=== PATIENT | female | born 2000 | race Caucasian/White ===

== ENCOUNTER 2021-08-24 08:15 | Emergency (ER) | payer OTHER ==
--- OUTSIDE RECORDS SUMMARY | 2021-08-24 08:20 | XMS REPORT | Continuity of Care Document ---
:2000 Author Organization [facility] t Address [address] [place] [address] Care Team Providers Name Role Phone Pcp, Does Not Have A Primary Care Physician AkinsiEsequiel Ferro Attending Clinician White_M Attending Clinician Unavailable White_M Admitting Clinician Unavailable Payers Payer Name Policy Type Policy Number Effective Date Expiration Date S ource Problems Condition Condition Condition Status Onset Resolution Last Treating Co mments Source Name Details Category Date Date Treatment Clinician Date Well woman Well woman Disease Active U nivers exam exam 3-11 ity of 00:00: [place] 00 Medical Branch Other Other Disease Active Overview: Univer s general general 2-22 Formattin ity o f counseling counseling 00:00: g of this [place] and advice and advice 00 note Me dical for for might be Branch contracept contracept different britta britta from the management management original. See records depo given last 03-13-21 Allergies, Adverse Reactions, Alerts Allergy Allergy Status Severity Reaction(s) Onset Inactive Treating Comm ents Source Name Type Date Date Clinician Haloperi Lisetensi Active Other - See U nivers dol ty to comments 3-11 ity of Lactate adverse 00:00: [place] reaction 00 Medical s Branch [place] Propensi Active Other - See Un favian ty to comments 3-11 ity of adverse 00:00: [place] reaction 00 Medical s Branch Benadryl Propensi Active Unknown - Uni vers Allergy ty to See comments 3-11 ity of Deconges adverse 00:00: [place] tant reaction Medical s [place] Social History Social Habit Start Date Stop Date Quantity Comments Source Exposure to Not sure University of SARS-CoV-2 [facility] (event) Branch Tobacco use and 2021-08-04 2021-08-04 Never used Universit y of exposure 00:00:00 00:00:00 [facility] Alcohol intake 2021-08-04 2021-08-04 Ex-drinker [facility] 00:00:00 00:00:00 (finding) [facility] Sex Assigned At [birth year] Universit y of 00:00:00 00:00:00 [facility] Smoking Status Start Date Stop Date Source Never smoker [facility] Medications Ordered Filled Start Stop Current Ordering Indication Dosage Frequency Signature Comments Components Source Medication Medication Date Date Medication? Clinician (SIG) Name Name No known No Univers medications 3-11 ity of 15:46: [place] 00 [facility] Branch Immunizations Ordered Filled Immunization Date Status Comments Sourc e Immunization Name Name Influenza Virus 2021-03-13 Completed Universit y of Vaccine 00:00:00 [facility] HPV 2017-12-24 Completed University of 00:00:00 [facility] HPV 2017-10-18 Completed University of 00:00:00 [facility] HPV 2016-08-17 Completed [facility] 00:00:00 [facility] Vital Signs Vital Name Observation Time Observation Value Comments Source Systolic blood 2021-08-04 21:35:00 115 mm[Hg] Univer sity of pressure [facility] Diastolic blood 2021-08-04 21:35:00 67 mm[Hg] Unive rsity of pressure [facility] Heart rate 2021-08-04 21:35:00 73 /min [facility] [place] [facility] Body temperature 2021-08-04 21:35:00 36.44 Dolores [facility] Respiratory rate 2021-08-04 21:35:00 16 /min [facility] Body height 2021-08-04 21:35:00 160 cm [facility] [place] [facility] ty of [facility] Body weight 2021-08-04 21:35:00 70.943 kg [facility] BMI 2021-08-04 21:35:00 27.71 kg/m2 [facility] Body mass index 2021-08-04 21:35:00 89.23 % Unive rsity of (BMI) [Percentile] [facility] ical Per age and sex Branch Procedures Procedure Date / Time Performed Performing Clinician Francis e POCT TEST 2021-08-04 21:38:00 Liya Bui Uni versity of [facility] Encounters Start End Encounter Admission Attending Care Care Encounter Source Date/Time Date/Time Type Type Clinicians Facility Department ID 2021-08-04 2021-08-04 Office VANESSA Bui [id number] [facility] [place] [facility] 15:00:00 15:30:00 Visit Liya 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 [id number] ity [facility] [id number] Joshua as MATERNAL [id number] Med ical & CHILD [address] [place] [address] 2020-10-03 2020-10-03 [place] [id number] [place] 01:03:00 01:03:00 [id number] 2020-09-29 2020-09-29 Outpatient White_M [facility] MMG [id number] [place] 04:21:00 04:21:00 [facility]506 [facility] Results Test Description Test Time Test Comments Results Result Comments Source POCT TEST 2021-08-04 21:38:00 Test Item Value Reference Range Interpretation Comme nts POCT PREG (test code = 1605) Negative On board controls acceptable with C Line (test code = 3574) Yes POCT PREG LOT # (test code = 3575) POCT PREG TEST DATE (test code = 3576) [facility]
[2021-08-24 08:43] LABS: Urine Blood Negative (Negative); Urine Glucose Negative (Negative); Urine Protein Trace (Negative)
[2021-08-24] MEDS ORDERED: ONDANSETRON 4 MG/2 ML VIAL ONE (08:53)
[2021-08-24] MEDS ORDERED: NA CHLORIDE 0.9% 1,000 ML ONE (08:53)
[2021-08-24 09:10] LABS: Absolute Lymphocytes (CBC) 1.3 K/uL (0.7-4.9); MPV 7.7 fL (7.6-11.3); RBC Red Blood Cell Count 4.41 M/uL (3.86-4.86)
[2021-08-24 09:45] LABS: ALT/SGPT 20 U/L (12-78); AST/SGOT 13 U/L (15-37); Albumin 4.1 g/dL (3.4-5.0); Alkaline Phosphatase 85 U/L (45-117); BUN Blood Urea Nitrogen 8 mg/dL (7-18); Bicarbonate 25 mmol/L (21-32); Bilirubin Total 0.4 mg/dL (0.2-1.0); Glucose Level 101 mg/dL (74-106); Lipase 106 U/L (73-393); Potassium 3.7 mmol/L (3.5-5.1); Protein, Total 7.4 g/dL (6.4-8.2); Sodium Level 145 mmol/L (136-145)
--- NOTE | 2021-08-24 09:52 | ER ---
Nurse's Notes [facility] Name: Fernando Castle Age: 20 yrs Sex: Female : 2000 Arrival Date: 08/24/2021 Time: 08:18 Bed 20 Private MD: Diagnosis: Cyclical vomiting, not intractable Presentation: 08/24 08:23 Chief complaint: Patient states: she feels faint starting this morning. Patient reports ap3 having CHS (cannabinoid hyperemeses syndrome), and has been having symptoms relating to reported illness the last few days. Patient also reports feeling dehydrated, has abdominal pain, and has been experiencing nausea and vomiting. Patient reports vomiting daily, but has increased in the last few days. 08:26 Coronavirus screen: At this time, the client does not indicate any symptoms associated ap3 with coronavirus-19. Ebola Screen: No symptoms or risks identified at this time. Initial Sepsis Screen: Does the patient meet any 2 criteria? No. Patient's initial sepsis screen is negative. Does the patient have a suspected source of infection? No. Patient's initial sepsis screen is negative. Risk Assessment: Do you want to hurt yourself or someone else? Patient reports no desire to harm self or others. Onset of symptoms was May 2021. 08:26 Method Of Arrival: Ambulatory ap3 08:26 Acuity: MARGARETTE 3 ap3 Triage Assessment: 08:28 General: Appears in no apparent distress. Behavior is calm, cooperative, appropriate ap3 for age. General: Reports feeling ill for fatigue for. Pain: Complains of pain in abdomen. Neuro: Level of Consciousness is awake, alert, obeys commands, Oriented to person, place, time, situation, Appropriate for age. Cardiovascular: Patient's skin is warm and dry. Respiratory: Airway is patent Respiratory effort is even, unlabored. GI: Reports lower abdominal pain, upper abdominal pain, nausea, vomiting. 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 Patient uses street drugs, marijuana, daily. - Family history:: not pertinent. - Hospitalizations: : No recent hospitalization is reported. Screenin:34 Abuse screen: Denies threats or abuse. Nutritional screening: Has had N/V for 3 or more ap3 days. Tuberculosis screening: No symptoms or risk factors identified. 09:04 Fall Risk None identified. gonzales Assessment: 08:35 General: patient provided with urine specimen container and education on proper urine ap3 collection. Patient verbalized understanding. . 09:04 Pain: Complains of pain in abdomen. GI: Reports nausea, vomiting. gonzales Vital Signs: 08:26 BP 131 / 77; Pulse 71; Pulse Ox 99% ; ap3 ED Course: 08:18 Patient arrived in ED. ds1 08:20 Maximino Strickland MD is Attending Physician. rn 08:28 Triage completed. ap3 08:35 Arm band placed on right wrist. ap3 08:35 Patient has correct armband on for positive identification. Placed in gown. Bed in low ap3 position. Call light in reach. Side rails up X 1. Adult w/ patient. 09:04 No provider procedures requiring assistance completed. Inserted saline lock: 20 gauge gonzales in left antecubital area, using aseptic technique. 09:06 CBC with Diff Sent. gonzales 09:06 CMP Sent. gonzales 09:06 Lipase Sent. gonzales 09:06 Urine --Ancillary (enter results) Sent. gonzales 10:12 IV discontinued, intact, Pressure dressing applied. gonzales Administered Medications: 09:05 Drug: Zofran (Ondansetron) 4 mg Route: IVP; Site: left antecubital; gonzales 09:06 Follow up: Response: No adverse reaction gonzales 09:05 Drug: NS 0.9% 1000 ml Route: IV; Rate: 1000 ml; Site: left antecubital; gonzales Outcome: 09:51 Discharge ordered by . rn 10:12 Discharged to home gonzales 10:12 Condition: good 10:12 Discharge instructions given to patient. 10:12 Patient left the ED. gonzales Signatures: Ramya French ds1 Maximino Strickland MD MD rn Prokisch, Amanda, RN RN ap3 Au-StagerMarcella RN RN gonzales Corrections: (The following items were deleted from the chart) 08:28 08:23 Chief complaint: Patient states: she feels faint starting this morning. Patient ap3 reports having CHS (cannabinoid hyperemeses syndrome), and has been having symptoms relating to reported illness the last few days. ap3
--- NOTE | 2021-08-24 09:52 | EDPHYS ---
Physician Documentation [facility] Name: Fernando Castle Age: 20 yrs Sex: Female : 2000 Arrival Date: 08/24/2021 Time: 08:18 Bed 20 Private MD: ED Physician Maximino Strickland HPI: 08/24 08:32 This 20 yrs old Female presents to ER via Ambulatory with complaints of rn nausea/vomiting, dehydration. 08:32 The patient presents to the emergency department with nausea, vomiting. Onset: The rn symptoms/episode began/occurred 3 month(s) ago. Possible causes: flare up of bowel problem, cannabinoid hyperemesis syndrome. The symptoms are aggravated by nothing. The symptoms are alleviated by nothing. Associated signs and symptoms: Pertinent positives: nausea, vomiting, Pertinent negatives: diarrhea, fever, GI bleeding. Severity of symptoms: At their worst the symptoms were moderate in the emergency department the symptoms are unchanged. The patient has experienced similar episodes in the past, chronically. The patient has not recently seen a physician. Pt reports diagnosed years ago with cannabinoid hyperemesis syndrome, quit smoking marijuana for a while, but restarted, states daily vomiting since May this year, no fever, feels identical to previous episodes. Has had CT, EGD, colonoscopy, and several outpatient tests that have been negative. Reports continues to smoke marijuana. . 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 Patient uses street drugs, marijuana, daily. - Family history:: not pertinent. - Hospitalizations: : No recent hospitalization is reported. ROS: 08:32 Constitutional: Negative for fever, chills, and weight loss, Eyes: Negative for injury, rn pain, redness, and discharge, Neck: Negative for injury, pain, and swelling, Cardiovascular: Negative for chest pain, palpitations, and edema, Respiratory: Negative for shortness of breath, cough, wheezing, and pleuritic chest pain, Abdomen/GI: + nausea/vomiting, + upper abd cramping Back: Negative for injury and pain, : Negative for injury, bleeding, discharge, and swelling, MS/Extremity: Negative for injury and deformity, Skin: Negative for injury, rash, and discoloration, Neuro: Negative for headache, numbness, tingling, and seizure. Exam: 08:32 Constitutional: This is a well developed, well nourished patient who is awake, alert, rn and in no acute distress. Speaking full sentences, joking, non-toxic appearance. Head/Face: Normocephalic, atraumatic. Eyes: Periorbital areas with no swelling, redness, or edema. ENT: Dry MM Cardiovascular: Regular rate and rhythm. No pulse deficits. Respiratory: No increased work of breathing, no retractions or nasal flaring. Abdomen/GI: soft, non-tender, no peritoneal signs Skin: Warm, dry MS/ Extremity: Pulses equal, no cyanosis. Neuro: Awake and alert, GCS 15 Vital Signs: 08:26 BP 131 / 77; Pulse 71; Pulse Ox 99% ; ap3 MDM: 08:20 Patient medically screened. rn 09:49 Differential diagnosis: Nonspecific abd pain, gastritis, viral gastroenteritis, rn gastroenteritis, cannabis hyperemesis syndrome. Data reviewed: vital signs, nurses notes, lab test result(s), and as a result, I will discharge patient. Counseling: I had a detailed discussion with the patient and/or guardian regarding: the historical points, exam findings, and any diagnostic results supporting the discharge/admit diagnosis, lab results, the need for outpatient follow up, to return to the emergency department if symptoms worsen or persist or if there are any questions or concerns that arise at home. Response to treatment: the patient's symptoms have markedly improved after treatment, and as a result, I will discharge patient. Special discussion: I discussed with the patient/guardian in detail that at this point there is no indication for admission to the hospital. It is understood, however, that if the symptoms persist or worsen the patient needs to return immediately for re-evaluation. ED course: No acute findings on blood work. . 08/24 08:31 Order name: CBC with Diff; Complete Time: 09:18 rn 08/24 08:31 Order name: CMP; Complete Time: 09:49 rn 08/24 08:31 Order name: Lipase; Complete Time: 09:49 rn 08/24 08:43 Order name: Urine Dipstick-Ancillary; Complete Time: 09:04 EDMS 08/24 08:44 Order name: Urine --Ancillary (enter results); Complete Time: 09:49 em1 08/24 08:31 Order name: IV Saline Lock rn 08/24 08:31 Order name: Labs collected and sent rn 08/24 08:31 Order name: Urine Dipstick-Ancillary (obtain specimen); Complete Time: 08:43 rn 08/24 08:31 Order name: Urine Test (obtain specimen); Complete Time: 08:43 rn Administered Medications: 09:05 Drug: Zofran (Ondansetron) 4 mg Route: IVP; Site: left antecubital; gonzales 09:06 Follow up: Response: No adverse reaction gonzales 09:05 Drug: NS 0.9% 1000 ml Route: IV; Rate: 1000 ml; Site: left antecubital; gonzales Disposition Summary: 08/24/21 09:51 Discharge Ordered Location: Home rn Problem: an acute exacerbation rn Symptoms: have improved rn Condition: Stable rn Diagnosis - Cyclical vomiting, not intractable rn Followup: rn - With: Private Physician - When: As needed - Reason: Recheck today's complaints, Re-evaluation by your physician Discharge Instructions: - Discharge Summary Sheet rn - Nausea and Vomiting, Adult rn - Cyclic Vomiting Syndrome, Adult rn Forms: - Medication Reconciliation Form rn - Thank You Letter rn - Antibiotic learning technologist - Prescription Opioid Use rn Signatures: Dispatcher [employer] [facility] Maximino Strickland MD MD rn Prokisch, Amanda RN RN ap3 Ying-Marcella Solomon RN RN gonzales
[2021-08-24 10:19] VITALS: BP 131/77; O2SAT 99
== END 2021-08-24 10:12 | disposition home or self-care (01) ==
LOC: ER 08:15
DX: R11.15 Cyclical vomiting syndrome unrelated to migraine (principal); F41.8 Other specified anxiety disorders; Z88.5 Allergy status to narcotic agent; Z88.8 Allergy status to other drugs, medicaments and biological substances; Z72.0 Tobacco use
CPT/HCPCS: 85025; 36415; 81025; 81003; 83690; 80053; 96374; 99283; J7030; J2405

== ENCOUNTER 2021-09-19 06:31 | Emergency (ER) | payer OTHER ==
--- OUTSIDE RECORDS SUMMARY | 2021-09-19 06:33 | XMS REPORT | Continuity of Care Document ---
:2000 Author Organization [facility] t Address [address] [place] [address] Care Team Providers Name Role Phone Pcp, [...] Source Name Type Date Date Clinician Haloperi Propensi Active Other - See U nivers dol ty to comments 3-11 ity of Lactate adverse 00:00: [place] reaction 00 Medical s Branch [place] Propensi Active Other - See Un favian ty to comments 3-11 ity of adverse 00:00: [place] reaction 00 Medical s Branch Benadryl Propensi Active Unknown - Uni vers Allergy ty to See comments 3-11 ity of Deconges adverse 00:00: [place] tant reaction Medical s [place] Social History Social Habit Start Date Stop Date Quantity Comments Source Exposure to Not sure University of SARS-CoV-2 [facility] (event) Branch Tobacco use and 2021-08-04 2021-08-04 Never used Universit y of exposure 00:00:00 00:00:00 [facility] Alcohol intake 2021-08-04 2021-08-04 Ex-drinker [facility] 00:00:00 00:00:00 (finding) [facility] Sex Assigned At [birth year] Universit y of 00:00:00 00:00:00 [facility] Smoking Status Start Date Stop Date Source Never smoker [facility] Medications Ordered Filled Start Stop Current Ordering Indication Dosage Frequency Signature Comments Components Source Medication Medication Date Date Medication? Clinician (SIG) Name Name No known No Univers medications 3-11 ity of 15:46: [address] Immunizations Ordered Filled Immunization Date Status Comments Sour e Immunization Name Name Influenza Virus 2021-03[facility]13 [facility] HPV 2017-12-24 Completed University 00:00:00 [facility] HPV 2017-10-18 Completed University of 00:00:00 [facility] HPV 2016-08-17 Completed [facility] 00:00:00 [facility] Vital Signs Vital Name Observation Time Observation Value Comments Source Systolic blood 2021-08-04 21:35:00 115 mm[Hg] Univer sity of pressure [facility] Diastolic blood 2021-08-04 21:35:00 67 mm[Hg] Unive rsity of pressure [facility] Heart rate 2021-08-04 21:35:00 73 /min [facility] Body temperature 2021-08-04 21:35:00 36.44 Dolores [facility] Res[facility] rate 2021-08-04 21:35:00 16 /min [facility] Body height 2021-08-04 21:35:[address] [facility] Body weight 2021-08-04 21:35:[address] [facility] BMI 2021-08-04 21:35:00 27.71 kg/m2 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
[2021-09-19] MEDS ORDERED: NA CHLORIDE 0.9% 1,000 ML ONE ×2 (06:59→08:37)
[2021-09-19] MEDS ORDERED: ONDANSETRON 4 MG/2 ML VIAL ONE (06:59)
[2021-09-19] MEDS ORDERED: FAMOTIDINE 20 MG/2 ML VIAL IV ONE (06:59)
[2021-09-19 07:16] LABS: Hematocrit 41.6 % (36.0-45.0); Lymphocytes % 10.7 % (15.3-44.8); MPV 7.8 fL (7.6-11.3); RBC Red Blood Cell Count 4.95 M/uL (3.86-4.86)
[2021-09-19 07:23] LABS: Urine Blood 1+ (Negative); Urine Glucose Negative (Negative); Urine Protein Trace (Negative); Urine pH 8.5 (5.0-7.0)
[2021-09-19 07:32] LABS: ALT/SGPT 21 U/L (12-78); AST/SGOT 12 U/L (15-37); Albumin 4.2 g/dL (3.4-5.0); Alkaline Phosphatase 87 U/L (45-117); BUN Blood Urea Nitrogen 6 mg/dL (7-18); Bicarbonate 20 mmol/L (21-32); Bilirubin Total 0.7 mg/dL (0.2-1.0); Glucose Level 124 mg/dL (74-106); Lipase 105 U/L (73-393); Potassium 3.4 mmol/L (3.5-5.1); Protein, Total 8.1 g/dL (6.4-8.2); Sodium Level 140 mmol/L (136-145)
[2021-09-19] MEDS ORDERED: PROMETHAZINE INJ 25 MG/ML AMP ONE (08:36)
[2021-09-19] MEDS ORDERED: KCL 20 MEQ/100 mL IVPB 100 ML IV ONE (08:37)
--- NOTE | 2021-09-19 09:31 | EDPHYS ---
Physician Documentation [facility] Name: Fernando Rossa Age: 20 yrs Sex: Female : 2000 Arrival Date: 09/19/2021 Time: 06:39 Bed 17 Private MD: ED Physician Maximino Strickland HPI: 09/19 07:09 This 20 yrs old Female presents to ER via EMS with complaints of vomiting. serge 07:09 The patient presents with abdominal pain in the lower abdomen. Onset: The serge symptoms/episode began/occurred 1 day(s) ago. The symptoms do not radiate. Associated signs and symptoms: none. Pertinent positives: vomiting. The symptoms are described as crampy. Modifying factors: The symptoms are alleviated by nothing, the symptoms are aggravated by food. Severity of pain: At its worst the pain was mild in the emergency department the pain is unchanged. The patient has experienced similar episodes in the past, multiple times. 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 - Social history:: Smoking status: Patient/guardian denies using tobacco, Patient uses street drugs, marijuana. - Family history:: not pertinent. ROS: 07:09 Constitutional: Negative for fever, chills, and weight loss, Eyes: Negative for injury, serge pain, redness, and discharge, ENT: Negative for injury, pain, and discharge, Neck: Negative for injury, pain, and swelling, Cardiovascular: Negative for chest pain, palpitations, and edema, Respiratory: Negative for shortness of breath, cough, wheezing, and pleuritic chest pain, Back: Negative for injury and pain, : Negative for injury, bleeding, discharge, and swelling, MS/Extremity: Negative for injury and deformity, Skin: Negative for injury, rash, and discoloration, Neuro: Negative for headache, weakness, numbness, tingling, and seizure, Psych: Negative for depression, anxiety, suicide ideation, homicidal ideation, and hallucinations, Allergy/Immunology: Negative for hives, rash, and allergies, Endocrine: Negative for neck swelling, polydipsia, polyuria, polyphagia, and marked weight changes, Hematologic/Lymphatic: Negative for swollen nodes, abnormal bleeding, and unusual bruising. 07:09 Abdomen/GI: Positive for abdominal pain, nausea and vomiting. Exam: 07:09 Constitutional: This is a well developed, well nourished patient who is awake, alert, serge and in no acute distress. Head/Face: Normocephalic, atraumatic. Eyes: Pupils equal round and reactive to light, extra-ocular motions intact. Lids and lashes normal. Conjunctiva and sclera are non-icteric and not injected. Cornea within normal limits. Periorbital areas with no swelling, redness, or edema. ENT: Nares patent. No nasal discharge, no septal abnormalities noted. Tympanic membranes are normal and external auditory canals are clear. Oropharynx with no redness, swelling, or masses, exudates, or evidence of obstruction, uvula midline. Mucous membranes moist. Neck: Trachea midline, no thyromegaly or masses palpated, and no cervical lymphadenopathy. Supple, full range of motion without nuchal rigidity, or vertebral point tenderness. No Meningismus. Chest/axilla: Normal chest wall appearance and motion. Nontender with no deformity. No lesions are appreciated. Cardiovascular: Regular rate and rhythm with a normal S1 and S2. No gallops, murmurs, or rubs. Normal PMI, no JVD. No pulse deficits. Respiratory: Lungs have equal breath sounds bilaterally, clear to auscultation and percussion. No rales, rhonchi or wheezes noted. No increased work of breathing, no retractions or nasal flaring. Abdomen/GI: Soft, non-tender, with normal bowel sounds. No distension or tympany. No guarding or rebound. No evidence of tenderness throughout. Back: No spinal tenderness. No costovertebral tenderness. Full range of motion. Female : Normal external genitalia. Skin: Warm, dry with normal turgor. Normal color with no rashes, no lesions, and no evidence of cellulitis. MS/ Extremity: Pulses equal, no cyanosis. Neurovascular intact. Full, normal range of motion. Neuro: Awake and alert, GCS 15, oriented to person, place, time, and situation. Cranial nerves II-XII grossly intact. Motor strength 5/5 in all extremities. Sensory grossly intact. Cerebellar exam normal. Normal gait. Psych: Awake, alert, with orientation to person, place and time. Behavior, mood, and affect are within normal limits. Vital Signs: 06:40 BP 125 / 90; Pulse 73; Resp 18; Temp 98.2(O); Pulse Ox 98% on R/A; Weight 65.77 kg; 5 Height 5 ft. 3 in. (160.02 cm); Pain 8/10; 08:38 BP 118 / 74; Pulse 74; Resp 19; ww 09:34 BP 102 / 57; Pulse 79; Resp 18; Pulse Ox 100% on R/A; ww 06:40 Body Mass Index 25.69 (65.77 kg, 160.02 cm) [facility] MDM: 06:39 Patient medically screened. serge 07:14 Differential diagnosis: appendicitis, bowel obstruction, Cholelithiasis, gastritis, serge Hepatitis, Menorrhagia, Mesenteric ischemia or infarction, non-specific abd pain, Peptic Ulcer Disease, Peritonitis, Pyelonephritis, Ureterolithiasis, urinary tract infection. Data reviewed: vital signs, nurses notes, EMS record, lab test result(s), CBC, electrolytes. 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 Test interpretation: by ED physician or midlevel provider:. Counseling: I had a detailed discussion with the patient and/or guardian regarding: the historical points, exam findings, and any diagnostic results supporting the discharge/admit diagnosis, lab results, radiology results, the need for outpatient follow up, for definitive care, a family practitioner, a rough patcher. 09:30 Response to treatment: the patient's symptoms have markedly improved after treatment, rn and as a result, I will discharge patient. Special discussion: I discussed with the patient/guardian in detail that at this point there is no indication for admission to the hospital. It is understood, however, that if the symptoms persist or worsen the patient needs to return immediately for re-evaluation. 09/19 06:40 Order name: CBC with Diff; Complete Time: 07:24 serge 09/19 06:40 Order name: CMP; Complete Time: 07:34 serge 09/19 06:40 Order name: Lipase; Complete Time: 07:34 serge 09/19 07:24 Order name: Urine Dipstick-Ancillary; Complete Time: 07:24 EDMS 09/19 08:18 Order name: Urine --Ancillary (enter results); Complete Time: 08:52 bd 09/19 06:40 Order name: IV Saline Lock; Complete Time: 07:15 serge 09/19 06:40 Order name: Labs collected and sent; Complete Time: 07:15 serge 09/19 06:40 Order name: Urine Dipstick-Ancillary (obtain specimen); Complete Time: 07:28 [facility] 09/19 06:40 Order name: Urine Test (obtain specimen); Complete Time: 07:28 [facility] Administered Medications: 07:00 Drug: NS 0.9% 1000 ml Route: IV; Rate: 1 bolus; Site: right antecubital; lp1 07:00 Drug: Pepcid (famotidine) 20 mg Route: IVP; Site: right antecubital; lp1 07:00 Drug: Zofran (Ondansetron) 4 mg Route: IVP; Site: right antecubital; lp1 08:11 Not Given (Duplicate Order): Lactated Ringers Solution 1000 ml IV at 150 ml/hr rn continuous 08:43 Drug: NS 0.9% 1000 ml Route: IV; Rate: 1 bolus; Site: right antecubital; ww 08:43 Drug: Phenergan (promethazine) 12.5 mg Route: IVP; Site: right antecubital; ww 08:43 Drug: Potassium Chloride 10 mEq Route: IV; Rate: calculated rate; Site: right ww antecubital; Disposition Summary: 09/19/21 09:30 Discharge Ordered Location: Home rn Problem: new rn Symptoms: have improved rn Condition: Stable rn Diagnosis - Cyclical vomiting, not intractable rn - Nausea with vomiting, unspecified rn - Abdominal pain, Generalized rn - Hypokalemia rn Followup: serge - With: Private Physician - When: 2 - 3 days - Reason: Recheck today's complaints, Continuance of care, Re-evaluation by your physician Followup: serge - With: - When: 2 - 3 days - Reason: Recheck today's complaints, Re-evaluation by your physician Discharge Instructions: - Discharge Summary Sheet serge - Abdominal Pain, Adult serge - Nausea and Vomiting, Adult serge - Nausea, Adult serge - Abdominal Pain, Adult, [id number] serge - Potassium Content of Foods serge - Nausea, Adult, [id number] serge - Hypokalemia serge Forms: - Medication Reconciliation Form rn - Thank You Letter rn - Antibiotic internal specialist - Prescription Opioid Use rn Prescriptions: - Pepcid 20 mg Oral Tablet - take 1 tablet by ORAL route every 12 hours for 15 days; 30 tablet; Refills: 0, [facility] Product Selection Permitted - Zofran 4 mg Oral Tablet - take 1 tablet by ORAL route every 12 hours As needed; 30 tablet; Refills: 0, [facility] Product Selection Permitted - promethazine 25 mg Oral Tablet - take 1 tablet by ORAL route every 6 hours As needed; 20 tablet; Refills: 0, [facility] Product Selection Permitted Signatures: Dispatcher [employer] Brandon Cobos MD MD cha Nieto, Roman, MD MD rn Pena, Laura, RN RN lp1 Kerry Naik RN RN 5 Christel Marcus RN RN ww
--- NOTE | 2021-09-19 09:31 | ER ---
Nurse's Notes [facility] Name: Fernando Rosas Age: 20 yrs Sex: Female : 2000 Arrival Date: 09/19/2021 Time: 06:39 Bed 17 Private MD: Diagnosis: Cyclical vomiting, not intractable;Nausea with vomiting, unspecified;Abdominal pain, Generalized;Hypokalemia Presentation: 09/19 06:40 Chief complaint: EMS states: pt smokes marijuana and ends up vomiting from it. pt last sm5 smoked about a day ago and has been vomiting since 2am. complaining of all over abd pain. Coronavirus screen: At this time, the client does not indicate any symptoms associated with coronavirus-19. Ebola Screen: No symptoms or risks identified at this time. Initial Sepsis Screen: Does the patient meet any 2 criteria? No. Patient's initial sepsis screen is negative. Does the patient have a suspected source of infection? No. Patient's initial sepsis screen is negative. Risk Assessment: Do you want to hurt yourself or someone else? Patient reports no desire to harm self or others. Onset of symptoms was September 19, 2021. 06:40 Method Of Arrival: EMS 5 06:40 Acuity: MARGARETTE 3 sm5 Triage Assessment: 06:42 General: Appears in no apparent distress. Behavior is cooperative, appropriate for age. sm5 Pain: Complains of pain in abdomen. Neuro: No deficits noted. Level of Consciousness is awake, alert, obeys commands, Oriented to person, place, time, situation. Cardiovascular: No deficits noted. Capillary refill < 3 seconds Patient's skin is warm and dry. Respiratory: No deficits noted. Airway is patent Trachea midline Respiratory effort is even, unlabored. GI: Abdomen is non-distended, Reports lower abdominal pain, upper abdominal pain, bloating, vomiting. 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 - Social history:: Smoking status: Patient/guardian denies using tobacco, Patient uses street drugs, marijuana. - Family history:: not pertinent. Screenin:43 Abuse screen: Denies threats or abuse. Denies injuries from another. Nutritional 5 screening: No deficits noted. Tuberculosis screening: No symptoms or risk factors identified. Fall Risk None identified. Assessment: 07:20 General: Appears in no apparent distress. Behavior is calm, cooperative. Pain: ww Complains of pain in abdomen. Neuro: Level of Consciousness is awake, alert, obeys commands, Oriented to person, place, time, situation, Moves all extremities. Gait is steady, Speech is normal. Cardiovascular: Patient's skin is warm and dry. Chest pain is denied. Respiratory: Airway is patent Respiratory effort is even, unlabored, Respiratory pattern is regular, symmetrical. GI: Abdomen is non-distended, Abd is soft Abdomen is tender to palpation in right lower quadrant and left lower quadrant Reports. Derm: No signs and/or symptoms reported regarding the dermatologic system. Skin is intact, is healthy with good turgor, Skin is pink, warm \T\ dry. Vital Signs: 06:40 BP 125 / 90; Pulse 73; Resp 18; Temp 98.2(O); Pulse Ox 98% on R/A; Weight 65.77 kg; 5 Height 5 ft. 3 in. (160.02 cm); Pain 8/10; 08:38 BP 118 / 74; Pulse 74; Resp 19; ww 09:34 BP 102 / 57; Pulse 79; Resp 18; Pulse Ox 100% on R/A; ww 06:40 Body Mass Index 25.69 (65.77 kg, 160.02 cm) [facility] ED Course: 06:39 Patient arrived in ED. serge 06:39 Brandon Santana MD is Attending Physician. [facility] 06:41 Triage completed. [facility] 06:42 Arm band placed on right wrist. [facility] 06:43 Patient has correct armband on for positive identification. Bed in low position. Call [facility] light in reach. Side rails up X2. 07:00 Inserted saline lock: 20 gauge in right antecubital area, using aseptic technique. lp1 Blood collected. 07:17 Siria Reyes RN is Primary Nurse. lp1 07:26 Attending Physician role handed off by Brandon Santana MD rn 07:26 Maximino Strickland MD is Attending Physician. rn 09:30 Ruth Ann Curtis MD is Referral Physician. rn 10:02 No provider procedures requiring assistance completed. IV discontinued, bleeding ww controlled, No redness/swelling at site. Pressure dressing applied. Administered Medications: 07:00 Drug: NS 0.9% 1000 ml Route: IV; Rate: 1 bolus; Site: right antecubital; lp1 07:00 Drug: Pepcid (famotidine) 20 mg Route: IVP; Site: right antecubital; lp1 07:00 Drug: Zofran (Ondansetron) 4 mg Route: IVP; Site: right antecubital; lp1 08:11 Not Given (Duplicate Order): Lactated Ringers Solution 1000 ml IV at 150 ml/hr rn continuous 08:43 Drug: NS 0.9% 1000 ml Route: IV; Rate: 1 bolus; Site: right antecubital; ww 08:43 Drug: Phenergan (promethazine) 12.5 mg Route: IVP; Site: right antecubital; ww 08:43 Drug: Potassium Chloride 10 mEq Route: IV; Rate: calculated rate; Site: right ww antecubital; Outcome: 09:30 Discharge ordered by . rn 10:02 Discharged to home ambulatory. ww 10:02 Condition: stable 10:02 Discharge instructions given to patient, Instructed on discharge instructions, follow up and referral plans. medication usage, safety practices, Demonstrated understanding of instructions, follow-up care, medications, Prescriptions given X 3. 10:08 Patient left the ED. ww Signatures: Brandon Santana MD MD cha Nieto, Roman, MD MD rn Pena, Laura, RN RN lp1 Kerry Naik RN RN 5 Christel Marcus RN RN ww
[2021-09-19 10:40] VITALS: TEMP 98.2
[2021-09-19 10:43] VITALS: BP 102/57; O2SAT 100
== END 2021-09-19 10:08 | disposition home or self-care (01) ==
LOC: ER 06:31
DX: E87.6 Hypokalemia (principal); R10.84 Generalized abdominal pain; R11.2 Nausea with vomiting, unspecified; F32.A Depression, unspecified; F41.9 Anxiety disorder, unspecified; Z88.5 Allergy status to narcotic agent; Z88.8 Allergy status to other drugs, medicaments and biological substances
CPT/HCPCS: 85025; 36415; 81025; 81003; 83690; 80053; J2550; J3480; J7030 ×2; J2405; J3490; 96374; 96375; 99284